=== PATIENT | male | born 1980 | race Caucasian/White ===

== ENCOUNTER 2023-04-26 06:00 | Outpatient (CLI) | payer OTHER ==
[~2023-04-26] VITALS: Ht 172.7 cm; Wt 78.5 kg
[~2023-04-26 06:00] MED LIST: HYDR-3714 PO; SULF1TAB38 PO
== END 2023-04-26 14:02 | disposition home or self-care (01) ==
LOC: PREOP 06:00
PROVIDERS: ATTEND Surgery
DX: Z01.818 Encounter for other preprocedural examination (principal)

== ENCOUNTER 2023-05-09 11:11 | Day surgery (SDC) | payer OTHER ==
[~2023-05-09] VITALS: Ht 175.3 cm; Wt 78.5 kg
[2023-05-09] MEDS ORDERED: LACTATED RINGERS 1,000 ML IV STA (11:14)
[2023-05-09 11:55] VITALS: BP 103/74
[2023-05-09] MEDS ORDERED: LACTATED RINGERS 1,000 ML IV ONE (13:48)
[2023-05-09] MEDS ORDERED: MIDAZOLAM 2 MG/2 ML (VERSED) VIAL ONE (13:51)
[2023-05-09] MEDS ORDERED: PROPOFOL INJECTION 50 ML IV ONE (13:51)
[2023-05-09] MEDS ORDERED: LACTATED RINGERS 1,000 ML IV PRN (14:00)
[2023-05-09 14:15] VITALS: BP 108/70
--- NOTE | 2023-05-09 14:15 | Progress Note-Post Operative ---
Post-Operative Progess Note Surgeon (s)/Lens Polisher (s) Surgeon MATT NOVOA DO Lens Polisher: na Pre-Operative Diagnosis screening colonoscopy Post-Operative Diagnosis colon polyps, internal hemorrhoid Procedure & Operative Findings Date of Procedure 05/09/23 Procedure Performed/Findings colonoscopy c hot bx polypectomy x 1 and snare polypectomy x 1 mariza inking Anesthesia Type per ambulance dispatcher Estimated Blood Loss Estimated blood loss (mL): none Specimens/Packing Specimens Removed cecal and sigmoid polyp MATT NOVOA DO May 09, 2023 14:15
--- NOTE | 2023-05-09 14:17 | Discharge Inst-Simple/Standard ---
Discharge Inst-Standard Patient Instructions/Follow Up Plan of Care/Instructions/FU: 2 weeks enedina Activity as Tolerated: Yes Discharge Diet: Regular Diet MATT NOVOA DO May 09, 2023 14:17
[2023-05-09 14:20] VITALS: BP 113/74
[2023-05-09 14:25] VITALS: BP 113/75
[2023-05-09 14:52] VITALS: BP 113/75
--- NOTE | 2023-05-09 20:10 | OPERATIVE REPORT ---
DATE OF SERVICE: 05/09/2023 PREOPERATIVE DIAGNOSIS: Screening colonoscopy. POSTOPERATIVE DIAGNOSES: Colon polyps, internal hemorrhoids. PROCEDURE: Colonoscopy with hot biopsy polypectomy x1, snare polypectomy x1 with Sandrine inking. SURGEON: Matt Ohara DO ANESTHESIA: Per SECURITY GUARD SUPERVISOR. ESTIMATED BLOOD LOSS: None. COMPLICATIONS: None. INDICATIONS: The patient is a 43-year-old male, needing screening colonoscopy. He understands risks and benefits of procedure and wishes to proceed. Consent was signed in chart. DESCRIPTION OF PROCEDURE: The patient was taken to endoscopy suite, placed in left lateral recumbent position. Timeout was performed. Digital rectal exam was performed noting internal hemorrhoid. No palpable polyps, masses or ulcerations. Scope was inserted in the rectum, advanced all the way to the cecum with minimal difficulty. Prep was adequate. Scope was slowly retracted back in the cecum. Cecal polyp was present, which hot polypectomy was performed. Scope was then continuously retracted back. Prep was adequate. Scope was slowly retracted back. No polyps, masses or ulcerations in the remainder of the ascending, transverse and descending colon. In the sigmoid colon at the rectosigmoid junction, large polyp was present was pedunculated. Snare polypectomy was performed. Too large to suction, therefore, it was withdrawn. Prior to doing the snare, Sandrine inking was performed just distal to the polyp for knowing where this was for reexamination. Scope was then reinserted and retroflexed noting the internal hemorrhoids. No other pathology. Scope was returned to its normal position, slowly withdrawn until completely removed. The patient tolerated the procedure well without complications, taken to recovery room in stable condition. RECOMMENDATIONS: We will recommend colonoscopy in one year and make sure this [ ] completely eradicate. If any issues before that, be seen at that time. We would consider either hemorrhoid energy therapy or hemorrhoidectomy for the internal hemorrhoid if he wishes to proceed with that. Job ID: [id number] DocumentID: [id number] Dictated Date: 05/09/2023 14:19:58 Director Home Date: 05/09/2023 20:07:00 Dictated By: MATT OHARA DO
== END 2023-05-09 15:01 | disposition home or self-care (01) ==
LOC: ENDO 11:11
PROVIDERS: ATTEND Surgery
DX: Z12.11 Encounter for screening for malignant neoplasm of colon (principal); D12.0 Benign neoplasm of cecum; D12.7 Benign neoplasm of rectosigmoid junction; K64.1 Second degree hemorrhoids; K64.5 Perianal venous thrombosis